=== PATIENT | male | born 1990 | race Hispanic/Latino ===

== ENCOUNTER → 2022-02-10 | Outpatient (CLI) | payer OTHER | END | disposition home or self-care (01) | LOC: RAH 02-09 08:46 | PROVIDERS: ATTEND Nurse Practitioner Family | DX: R51.9 Headache, unspecified (principal) | CPT/HCPCS: 70551 ==

== ENCOUNTER 2022-03-03 11:29 | Emergency (ER) | payer OTHER ==
[2022-03-03] MEDS ORDERED: AZIT250T9 PO (14:04)
[2022-03-03] MEDS ORDERED: D-ME118S47 PO (14:04)
[2022-03-03] MEDS ORDERED: BENZ-39 PO (14:04)
[2022-03-03] MEDS ORDERED: DEXAMETHASONE SOD PHOSPHATE 4 MG/ML 1ML VIAL ONE (14:20)
== END 2022-03-03 12:28 | disposition home or self-care (01) ==
LOC: EDH 11:29
DX: R50.9 Fever, unspecified (principal); R07.0 Pain in throat; Z53.21 Procedure and treatment not carried out due to patient leaving prior to being seen by health care provider; Z20.822 Contact with and (suspected) exposure to COVID-19
CPT/HCPCS: 87635; 87880; 87804 ×2; J1100; C9803

== ENCOUNTER 2022-03-03 12:22 | Emergency (ER) | payer OTHER ==
[~2022-03-03] VITALS: Ht 180.3 cm; Wt 171.9 kg
[2022-03-03 13:39] VITALS: BP 148/92
[2022-03-03] MEDS ORDERED: AZIT250T9 PO (14:04)
[2022-03-03] MEDS ORDERED: BENZ-39 PO (14:04)
[2022-03-03] MEDS ORDERED: D-ME118S47 PO (14:04)
[2022-03-03] MEDS ORDERED: DEXAMETHASONE SOD PHOSPHATE 4 MG/ML 1ML VIAL IM SCH (14:40)
== END 2022-03-03 14:40 | disposition home or self-care (01) ==
LOC: EDH 12:22
DX: J02.9 Acute pharyngitis, unspecified (principal); R05.9 Cough, unspecified; R50.9 Fever, unspecified

== ENCOUNTER 2023-08-12 10:32 | Emergency (ER) | payer OTHER ==
[~2023-08-12] VITALS: Ht 180.3 cm; Wt 167.8 kg
[~2023-08-12 10:32] MED LIST: AZIT250T9 PO; BENZ-39 PO; BROM118S48 PO
[2023-08-12 10:38] VITALS: BP 157/90; PULSE 81; RESP 18
[2023-08-12] MEDS ORDERED: AMOX1TAB16 PO (10:45)
[2023-08-12] MEDS ORDERED: IBUP-2077 PO (10:45)
[2023-08-12] MEDS: IBUPROFEN 800 MG TAB PO ONE (11:17)
== END 2023-08-12 11:25 | disposition home or self-care (01) ==
LOC: EDH 10:32
DX: J03.90 Acute tonsillitis, unspecified (principal); R50.9 Fever, unspecified; Z79.899 Other long term (current) drug therapy